=== PATIENT | male | born 1995 | race Caucasian/White ===

== ENCOUNTER 2016-08-14 17:30 | Emergency (ER) | payer SELFPAY | END 2016-08-14 18:38 | disposition home or self-care (01) | LOC: FER 17:30 | DX: T16.2XXA Foreign body in left ear, initial encounter (principal); F17.210 Nicotine dependence, cigarettes, uncomplicated ==

== ENCOUNTER 2020-11-14 09:58 | Emergency (ER) | payer OTHER ==
[~2020-11-14 09:58] MED LIST: NORCO 5-325 TA1 EACH PO
[2020-11-14] MEDS ORDERED: ONDANSETRON ODT4 MG PO (13:03)
[2020-11-14 13:42] LABS: CORONAVIRUS 2019 SARS-COV-2 NEGATIVE (NEGATIVE); INFLUENZA A NAA NEGATIVE (NEGATIVE)
== END 2020-11-14 13:30 | disposition home or self-care (01) ==
LOC: FER 09:58
PROVIDERS: Internal Medicine
DX: R06.00 Dyspnea, unspecified (principal); R11.2 Nausea with vomiting, unspecified; R05 Cough; Z20.822 Contact with and (suspected) exposure to COVID-19; F17.210 Nicotine dependence, cigarettes, uncomplicated
CPT/HCPCS: 99284; U0002

== ENCOUNTER 2021-01-16 19:01 | Emergency (ER) | payer OTHER ==
[~2021-01-16 19:01] MED LIST changes: +ONDANSETRON ODT4 MG PO
== END 2021-01-16 21:40 | disposition home or self-care (01) ==
LOC: FER 19:01
DX: M79.651 Pain in right thigh (principal); M25.571 Pain in right ankle and joints of right foot; M79.661 Pain in right lower leg; R60.0 Localized edema; F17.210 Nicotine dependence, cigarettes, uncomplicated
CPT/HCPCS: 93971

== ENCOUNTER 2021-02-01 13:45 | Emergency (ER) | payer OTHER | END 2021-02-01 17:22 | disposition home or self-care (01) | LOC: FER 13:45 | DX: M25.561 Pain in right knee (principal); M79.661 Pain in right lower leg; M79.89 Other specified soft tissue disorders; F17.210 Nicotine dependence, cigarettes, uncomplicated | CPT/HCPCS: 73560; 93971 ==

== ENCOUNTER 2021-05-29 11:20 | Emergency (ER) | payer OTHER | END 2021-05-29 12:54 | disposition home or self-care (01) | LOC: FER 11:20 | DX: M79.641 Pain in right hand (principal); F17.210 Nicotine dependence, cigarettes, uncomplicated; W23.0XXA Caught, crushed, jammed, or pinched between moving objects, initial encounter | CPT/HCPCS: 73110; 73130 ==